=== PATIENT | male | born 1980 | race Caucasian/White ===

== ENCOUNTER 2017-04-20 17:55 | Emergency (ER) | payer BC, MEDICAID, OTHER ==
[~2017-04-20] VITALS: Wt 92.0 kg
[~2017-04-20 17:55] MED LIST: DOXY100T20 PO; LEVO500T72 PO
[2017-04-20 19:55] LABS: ADD UMIC YES; UR ASCORBIC ACID 40 mg/dL (NEGATIVE); UR BACTERIA FEW /HPF (NONE SEEN); UR BILIRUBIN (Dip) NEGATIVE (NEGATIVE); UR BLOOD (Dip) NEGATIVE (NEGATIVE); UR CLARITY SLIGHTLY CLOUDY (CLEAR); UR COLOR YELLOW (YELLOW); UR GLUCOSE (Dip) NEGATIVE (NEGATIVE); UR KETONES (Dip) NEGATIVE (NEGATIVE); UR LEUKOCYTE ESTERASE (Dip) 3+ Leu/ul (NEGATIVE); UR MUCUS MANY /HPF (NONE SEEN); UR NITRITE (Dip) NEGATIVE (NEGATIVE); UR RBC 7 /HPF (0-5); UR SPECIFIC GRAVITY (Dip) 1.025 (1.003-1.030); UR TOTAL PROTEIN (Dip) NEGATIVE (NEGATIVE); UR UROBILINOGEN (Dip) NEGATIVE (NEGATIVE)
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
[2017-04-20] MEDS ORDERED: CEFU500T45 PO (20:29)
[2017-04-20] MEDS ORDERED: AZITHROMYCIN 250 MG TAB PO ONE (20:30)
[2017-04-20] MEDS ORDERED: CEFTRIAXONE 1 GM INJ IM ONE (20:30)
[2017-04-20] MEDS ORDERED: LIDOCAINE 1% (MDV) 20 ML INJ SC ONE (20:30)
[2017-04-20 21:00] VITALS: BP 129/79; PULSE 58; RESP 16; TEMP 98.2
== END 2017-04-20 21:01 | disposition home or self-care (01) ==
LOC: FTE 17:55
DX: N30.00 Acute cystitis without hematuria (principal); F17.210 Nicotine dependence, cigarettes, uncomplicated
CPT/HCPCS: 81001; 87086; 87591; 96372; J0696; Z7502; Z7610

== ENCOUNTER 2017-06-13 01:32 | Emergency (ER) | payer MEDICAID, OTHER ==
[~2017-06-13] VITALS: Ht 167.6 cm; Wt 98.0 kg
[~2017-06-13 01:32] MED LIST changes: +CEFU500T45 PO
[2017-06-13 01:36] VITALS: Ht 167.6 cm; Wt 98.0 kg
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
[2017-06-13 05:28] LABS: ADD UMIC YES; UR ASCORBIC ACID NEGATIVE (NEGATIVE); UR BACTERIA FEW /HPF (NONE SEEN); UR BILIRUBIN (Dip) NEGATIVE (NEGATIVE); UR BLOOD (Dip) 3+ mg/dL (NEGATIVE); UR CLARITY SLIGHTLY CLOUDY (CLEAR); UR COLOR STRAW (YELLOW); UR GLUCOSE (Dip) NEGATIVE (NEGATIVE); UR KETONES (Dip) NEGATIVE (NEGATIVE); UR LEUKOCYTE ESTERASE (Dip) 3+ Leu/ul (NEGATIVE); UR NITRITE (Dip) NEGATIVE (NEGATIVE); UR RBC 2 /HPF (0-5); UR SPECIFIC GRAVITY (Dip) 1.003 (1.003-1.030); UR TOTAL PROTEIN (Dip) NEGATIVE (NEGATIVE); UR UROBILINOGEN (Dip) NEGATIVE (NEGATIVE)
[2017-06-13] MEDS ORDERED: CEFTRIAXONE 1 GM INJ IM ONE (05:30)
[2017-06-13] MEDS ORDERED: CIPR500T4 PO (05:35)
[2017-06-13] MEDS ORDERED: PHEN-538 PO (05:35)
[2017-06-13 05:52] VITALS: BP 120/66; PULSE 50; RESP 12; TEMP 99.8
== END 2017-06-13 07:06 | disposition home or self-care (01) ==
LOC: FTE 01:32
DX: N30.01 Acute cystitis with hematuria (principal); F17.210 Nicotine dependence, cigarettes, uncomplicated
CPT/HCPCS: 81001; 96372; J0696; Z7502

== ENCOUNTER 2018-09-01 02:51 | Emergency (ER) | END 2018-09-01 05:26 | disposition home or self-care (01) ==